=== PATIENT | female | born 1940 | race Caucasian/White ===

== ENCOUNTER 2017-04-09 12:32 | Inpatient (IN) | payer OTHER, MEDICARE ==
[~2017-04-09] VITALS: Ht 149.9 cm; Wt 65.0 kg
[2017-04-10] MEDS ORDERED: LIDO4PAD TOPICAL (11:37)
[2017-04-10] MEDS ORDERED: PRIL20TA2 PO (16:01)
[2017-04-10] MEDS ORDERED: MULT1TAB46 PO (16:01)
[2017-04-10] MEDS ORDERED: CALC500T35 PO (16:01)
[2017-04-10] MEDS ORDERED: TIZA4CAP3 PO (16:01)
[2017-04-10] MEDS ORDERED: CO Q200C PO (16:01)
[2017-04-10] MEDS ORDERED: IBUP400T20 PO (16:01)
[2017-04-10] MEDS ORDERED: FISH1000 PO (16:01)
[2017-04-10] MEDS ORDERED: GABA300C5 PO (16:01)
[2017-04-10] MEDS ORDERED: VITA100064 PO (16:01)
[2017-04-10] MEDS ORDERED: VITACAP9 PO (16:01)
[2017-04-10] MEDS ORDERED: LACTCAP8 PO (16:01)
[2017-04-10] MEDS ORDERED: [UNRECOGNIZED DRUG - OTHER] EACH EYE (16:01)
[2017-04-10] MEDS ORDERED: CALCCHW CHEW (16:01)
[2017-04-10] MEDS ORDERED: ASPI-110 PO (16:01)
[2017-04-10] MEDS ORDERED: LIPI40TA PO (16:01)
[2017-04-10] MEDS ORDERED: ENAL2.5T PO (16:06)
--- NOTE | 2017-04-16 10:32 | MH ---
cc: MEGAN WRIGHT DATE OF ADMISSION 04/16/2017 ADMISSION DIAGNOSIS Right knee osteoarthritis. HISTORY This patient is a 76-year-old female with significant right knee pain. Investigative studies shows evidence of extensive arthritis in the right knee. Despite conservative care, the patient is painful and symptomatic. She presents for surgical treatment. PAST MEDICAL HISTORY, SOCIAL HISTORY AND FAMILY HISTORY, REVIEW OF SYSTEMS See attached notes. PHYSICAL EXAMINATION This is a 76-year-old female in moderate distress with her right knee. HEENT: Normocephalic, atraumatic. Pupils equal, round, reactive to light and accommodation. Extraocular motions intact. NECK: Supple. CHEST: Clear. HEART: Regular rate and rhythm. ABDOMEN: Soft and nontender with normoactive bowel sounds. MUSCULOSKELETAL: Examination of the right knee, pain with range of motion, pain with varus-valgus stress, mild deformity is seen. NEUROLOGIC AND VASCULAR: Examination is within normal limits. IMPRESSION Osteoarthritis right knee PLAN Right total knee replacement arthroplasty. CONSENT The risks of surgery including infection, bleeding, loss of motion, continued pain need for further surgery, neurologic and vascular injury. The patient understands these issues and wishes to press on with surgery as outlined above. MD JAMIE Ramsey/ALTHEA /11:41 PM /10:23 AM
[2017-04-16] MEDS ORDERED: VANCOMYCIN 1000 MG/NS 250 ML (for <70 kg) IV SCH ×2 (11:30)
[2017-04-16] MEDS ORDERED: CHLORHEXIDINE GLUCONATE 2 % 1 PACK (2 CLOTHS) TOPICAL PRN (11:30)
[2017-04-16] MEDS ORDERED: LACTATED RINGER'S 1000 ML IV PRN (11:30)
[2017-04-16] MEDS ORDERED: ceFAZolin 2 GM PREMIX 50 ML IV SCH (11:30)
[2017-04-16] MEDS ORDERED: METOPROLOL TARTRATE 25 MG TAB PO PRN (11:30)
[2017-04-16] MEDS ORDERED: INSULIN HUMAN REGULAR 1,000 UNITS/10 ML VIAL SQ PRN (11:30)
[2017-04-16] MEDS ORDERED: POVIDONE IODINE 5% (ANTISEPSIS KIT) 4 APPLICATIONS EACH NARE PRN (11:30)
[2017-04-16] MEDS ORDERED: SODIUM CHLORID 0.9% 500 ML IV PRN (11:30)
[2017-04-16] MEDS ORDERED: POVIDONE IODINE 7.5% SCRUB 118 ML BOTTLE TOPICAL SCH (11:30)
[2017-04-16 11:43] VITALS: BP 145/64; PULSE 73; RESP 18; TEMP 98; O2SAT 99
[2017-04-16] MEDS ORDERED: ONDANSETRON HCL 4 MG/2 ML VIAL IV PUSH ONE (12:00)
[2017-04-16] MEDS ORDERED: ePHEDrine/NS 25 MG/5 ML SYR IV ONE (12:00)
[2017-04-16] MEDS ORDERED: PROPOFOL 200 MG/20 ML AMP IV ONE (12:00)
[2017-04-16] MEDS ORDERED: LACTATED RINGER'S 1000 ML INJ 1,000 ML IV ONE (12:00)
[2017-04-16] MEDS ORDERED: PHENYLEPH/NS 1000 MCG/10 ML SYR IV ONE (12:00)
[2017-04-16] MEDS ORDERED: KETAMINE HCL 500 MG/5 ML VIAL IV ONE (12:00)
[2017-04-16] MEDS ORDERED: SODIUM CHLORIDE 0.9% IV SCH ×2 (13:00→17:27)
[2017-04-16] MEDS ORDERED: EXPAREL PERI-ARTICULAR INJECTION (TOTAL VOL. 60 ML) P-ARTICULR SCH ×2 (13:00)
[2017-04-16] MEDS ORDERED: TRANEXAMIC ACID IV SCH ×2 (13:00→17:27)
[2017-04-16] MEDS ORDERED: APREPITANT 40 MG CAP ONE (13:06)
[2017-04-16] MEDS ORDERED: GENTAMICIN SULFATE 80 MG/2 ML VIAL ONE (13:10)
[2017-04-16] MEDS ORDERED: MIDAZOLAM HCL 2 MG/2 ML VIAL ONE (13:20)
--- NOTE | 2017-04-16 15:28 | PD.OP ---
cc: Jonny hCapman. Operative Report Date of Surgery: Apr 16, 2017 Preoperative Diagnosis: Osteoarthritis right knee, severe. Valgus deformity right knee Postoperative Diagnosis: Same Procedure: Right total knee replacement arthroplasty Anesthesia: Spinal Surgeon: Jonny Chapman Catering Chef(s): BERENICE Jj Operation and Findings: EBL: 50 cc INDICATION: This patient presents with long-standing arthritis of the knee. Attachment record documents conservative measures. The patient now presents for surgical treatment. NOTE: Ana Jj PA-C was present for the entire surgical procedure as my first helper. In my medical opinion her skill and care was necessary for proper management of this patient. TOURNIQUET TIME: 43 minutes COMPANY: [employer] FEMUR: Size 2, cruciate retaining, cemented TIBIA: Size 2, fixed-bearing, cemented PATELLA: 32 mm POLYETHYLENE INSERT: 11 mm PROCEDURE: This patient was brought the operating room and anesthetized in the supine position. The patient was positioned supine on the table. The tourniquet was placed about the thigh, and the leg was scrubbed with alcohol followed by Hibiclens followed by ChloraPrep and draped sterilely. A timeout was done, and antibiotics were given. After exsanguination the tourniquet was inflated to 250 mmHg. An anterior incision was made and a median parapatellar arthrotomy was performed. The patella was released laterally and subluxed allowing freehand cut of the patella which was then sized. A metal cap was placed over the exposed patellar surface for protection. A shop steward hole was placed in the distal femur allowing a 3 valgus cut removing 10 mm from the distal femur. Anterior posterior and chamfer cuts were made. The posterior stabilize osteotomy was made. The attention was directed to the tibia. Retractors were positioned. The external alignment guide was used allowing the lateral tibia to be used as referencing guide and cut utilizing an oscillating saw taking care to avoid any injury to the surrounding soft tissues. This was sized properly. Trial reduction showed that the insert fit nicely. The patient had range of motion extension 0 flexion 130. A medial release was not necessary. The bony surfaces prepared. On the back table 2 packets of methylmethacrylate were mixed. The components were cemented. Excess cement was removed. The tourniquet let down and hemostasis was controlled. The final plastic insert was inserted. Range of motion was the same as previously noted. A drain was brought through a separate stab incision. The arthrotomy was repaired with interrupted #1 Vicryl suture, subcutaneous tissue 2-0 Vicryl suture and skin with metallic rudy A sterile dressing was applied. Sponge counts, needle counts and instrument counts were all correct. The patient tolerated procedure well and was taken to recovery in satisfactory condition. FINDINGS: There was severe arthritis of the lateral compartment with a hypoplastic lateral condyle and a valgus deformity. The final alignment was very satisfactory. Final fit was excellent. No complication was appreciated Jonny Chapman MD Apr 16, 2017 15:28
[2017-04-16] MEDS ORDERED: oxyCODONE/ACETAMINOPHEN 5 MG/325 MG TAB PO PRN (15:30)
[2017-04-16] MEDS ORDERED: Post-op Orders (for Pharmacy) MISC XX ONE (15:30)
[2017-04-16] MEDS ORDERED: MORPHINE SULFATE 8 MG/ML INJ IM PRN (15:30)
[2017-04-16] MEDS ORDERED: MORPHINE SULFATE 30 MG/30 ML PCA IV SCH (15:30)
[2017-04-16] MEDS ORDERED: SODIUM CHLORIDE 0.9% FLUSH 5 ML FLUSH IVF PRN (15:30)
[2017-04-16] MEDS ORDERED: NALOXONE HCL 0.4 MG/ML AMP IV PRN (15:30)
[2017-04-16] MEDS ORDERED: OXYC1TAB63 PO (15:30)
[2017-04-16] MEDS ORDERED: XARE10TA PO (15:30)
[2017-04-16] MEDS ORDERED: TEMAZEPAM 15 MG CAP PO PRN (15:30)
[2017-04-16] MEDS ORDERED: MISCELLANEOUS NURSING INFORMATION XX PRN (15:30)
[2017-04-16] MEDS ORDERED: MISCELLANEOUS PHARMACY INFORMATION XX ONE (15:30)
[2017-04-16] MEDS ORDERED: *morphine SULFATE 8 MG/ML PERIprocedure ONLY ONE ×2 (16:33→16:49)
--- NOTE | 2017-04-16 16:43 | RADRPT ---
EXAM DATE/TIME: 04/16/2017 16:16 [facility] COMPARISON: No previous studies available for comparison. INDICATIONS : Post hardware placement MEDICAL HISTORY : Arthritis. SURGICAL HISTORY : None. ENCOUNTER: Initial ACUITY: 1 day PAIN SCORE: 0/10 LOCATION: Right Knee FINDINGS: AP and lateral views of the knee following arthroplasty reveals a prosthesis in anatomic alignment. F racture is not appreciated. Surgical drain is evident CONCLUSION: Status post total knee arthroplasty. Go Jiang MD FACR Board Certified Radiologist. This report was verified electronically.
[2017-04-16] MEDS ORDERED: DIMETHICONE/OXYBENZONE/PADMIATE LIP BALM 4.25 GM TOPICAL ONE (16:44)
[2017-04-16] MEDS: LACTATED RINGER'S 1000 ML INJ 1,000 ML IV SCH (16:50)
[2017-04-16] MEDS ORDERED: DO NOT ADM ANY ANTICOAGULANT DRUGS PRN (17:15)
[2017-04-16] MEDS: GABAPENTIN 300 MG CAP PO SCH (18:00)
[2017-04-16 19:00] VITALS: BP 142/61; PULSE 60; RESP 18; TEMP 96.8; O2SAT 100
[2017-04-16] MEDS: SODIUM CHLORIDE 0.9% FLUSH 5 ML FLUSH IVF SCH (21:00)
[2017-04-16] MEDS: ENALAPRIL MALEATE 2.5 MG TAB PO SCH (21:51)
[2017-04-16] MEDS: ATORVASTATIN 40 MG TAB PO SCH (21:51)
[2017-04-16] MEDS: MAGNESIUM HYDROXIDE SUSP 30 ML CUP PO SCH (21:52)
[2017-04-16] MEDS: SENNOSIDES 8.6 MG TAB PO SCH (21:52)
[2017-04-16] MEDS ORDERED: PCA - TOTAL MG MORPHINE DELIVERED PER SHIFT SCH (22:00)
[2017-04-17] VITALS (10 sets, daily range): BP systolic 101–125; BP diastolic 50–67; PULSE 65–95; RESP 16–18; TEMP 95.3–99.1; O2SAT 92–98
[2017-04-17] MEDS: LACTATED RINGER'S 1000 ML INJ 1,000 ML IV SCH ×2 (04:30→16:38)
[2017-04-17 06:03] LABS: HEMATOCRIT 35.9 % (35.0-46.0); REVIEW FLAG FINAL
[2017-04-17] MEDS ORDERED: WALKER WHEELS/F1 MIS (07:57)
[2017-04-17] MEDS ORDERED: COMMODE 3-IN-11 MIS (07:58)
--- NOTE | 2017-04-17 07:58 | HHI.DCPOC ---
Discharge Care Plan Diagnosis: (1) Right knee pain (2) Osteoarthritis of right knee Your Health Problems Are: Incision/Drains Swelling Goals to Promote Your Health * To prevent worsening of your condition and complications * To maintain your health at the optimal level Directions to Meet Your Goals Take your medications as prescribed Follow your dietary instruction Follow activity as directed Keep your appointments as scheduled Take your immunizations and boosters as scheduled If your symptoms worsen call your PCP, if no PCP go to Urgent Care Center or Emergency Room Smoking is Dangerous to Your Health. Avoid second hand smoke Call the 24-hour hour crisis hotline for domestic abuse at Mica Moore Apr 17, 2017 07:58
--- NOTE | 2017-04-17 08:00 | HHI.DS ---
Discharge Summary Admission Date Apr 16, 2017 at 10:51 Discharge Date: Apr 20, 2017 Admitting Diagnosis see below Diagnosis: (1) Right knee pain Diagnosis: Principal (2) Osteoarthritis of right knee Diagnosis: Principal Procedures Right total knee arthroplasty Brief History This is a 77 year old female patient with a 2 year history of right knee pain and increasing deformity. She began using ice, heat and over the counter topical anti-inflammatories. Her pain continued. She sought out medical treatment and imaging studies were performed showing advanced lateral compartment arthritis and a valgus deformity. She tried using a brace but his increased her pain. She sought out further treatment and had steroid injections in addition to viscosupplement injections. Because her function continued to decline it was eventually recommended she move forward with right total arthroplasty. She agreed and presents for the above. CBC/BMP: 04/17/17 0541 Hospital Course Surgical treatment was performed on the day of admission without complication. She recovered well in PACU and was transferred to the orthopaedic floor. Pain was controlled with IV and oral medications. DVT prophylaxis was initiated pod# 1 with xarelto. On day 2 she began struggling with mild shortness of breath and her O2 levels began dropping. A VQ scan was performed in addition to CTA and it was confirmed she had a PE of the right upper lobe. She was increased to xarelto 30mg qd. After 4 days she was found to be medically stable and discharged to residential with instruction to continue her therapy, continue a high fiber diet, and to continue her xarelto until notified otherwise. The medical service recommended followup outpatient with her PCP for management of her PE. Pt Condition on Discharge: Stable Discharge Disposition: Discharge to SNF Discharge Instructions Diet Instructions: As Tolerated, No Restrictions, High Fiber Diet Activities You Can Perform: Weight Bearing as Lonnie Activities to Avoid: Strenuous Activity Additional Activity Instruc.: TKA protocol New Medications: Commode 3-in-1 (Commode 3-in-1) 1 Mis Mis 1 EA .ROUTE DIRECTED #1 Ref 0 EA CPM-Continuous Passive Motion Machine (CPM-Continuous Passive Motion Machine) 1 Ea Device 1 EA .ROUTE DIRECTED #1 Ref 0 EA Rivaroxaban (Xarelto) 20 Mg Tab 20 MG PO DAILY TAKE ONE TABLET BY MOUTH STARTING ON 2016 UNTIL DISCONTINUED BY [facility] Blood Clot Prevention #30 Ref 0 TAB Walker with Front Wheels (Walker with Front Wheels) 1 Mis Mis 1 EA .ROUTE DIRECTED #1 Ref 0 EA Oxycodone-Acetaminophen (Oxycodone-Acetaminophen) 5-325 mg Tab 1 TAB PO Q4H PRN PAIN LESS THAN 5 ON SCALE #50 TAB Continued Medications: Atorvastatin (Lipitor) 40 Mg Tab 40 MG PO HS Cholesterol Management #30 Ref 0 TAB B Complex W/ C (Vitamin B Complex-C) 1 Cap Cap 1 TAB PO DAILY Calcium-Vitamins D & K (Calcium Soft Chews) 500-500-40 Mg-Unit-Mcg Chew 1 TAB CHEW ,,MYLES Nutritional Supplement Ref 0 TAB Cholecalciferol (Vitamin D3) 1,000 Unit Tab 1000 UNITS PO MO,,FR Nutritional Supplement #1 Ref 0 BOTTLE Coenzyme Q10 (Ubidecarenone) (Co Q-10) 200 Mg Cap 1 CAP PO DAILY Enalapril (Enalapril) 2.5 Mg Tab 2.5 MG PO HS #30 Ref 0 TAB Gabapentin (Gabapentin) 300 Mg Cap 300 MG PO TID #90 Ref 0 CAP Lactobacillus Acidophilus (Probiotic) 1 Cap Cap 1 CAP PO DAILY Nutritional Supplement #90 Ref 0 CAP Lidocaine Patch (Aspercreme Lidocaine Max Patch) 4% Patch 1 PATCH TOPICAL DIRECTED PRN PAIN SCALE 1 TO 10 Multiple Vitamin (Multi Vitamin Daily) 1 Tab Tab 1 TAB PO ,,FR [place]-3 Fatty Acids (Fish Oil) 1,000 Mg Cap 1 CAP PO ,, Omeprazole Magnesium (Prilosec) 20 Mg Tab 1 TAB PO DAILY Peg 400/Hypromellose/Glycerin (Eye Drop Tears) 15 Ml Drops 1 DROP EACH EYE DIRECTED PRN DRY EYE Tizanidine (Tizanidine) 4 Mg Cap 4 MG PO HS PRN MUSCLE SPASM Ref 0 CAP Discontinued Medications: Aspirin DR (Aspirin 81) 81 Mg Tabdr 81 MG PO DAILY Ref 0 TAB Ibuprofen (Ibuprofen) 400 Mg Tab 400 MG PO Q6H PRN PAIN SCALE 1 TO 10 Ref 0 TAB Mica Moore Apr 17, 2017 08:00
--- NOTE | 2017-04-17 08:02 | PD.ORT.PN ---
Subjective Subjective Remarks Moderate right knee pain. Aching in the posterior knee and thigh. No loss sensation. No new CP or SOB. Questions about surgery. Has no one at home so prefers rehab. Objective Vitals Vital Signs Date Time Temp Pulse Resp B/P Pulse Ox O2 Delivery O2 Flow Rate FiO2 04/17/17 07:38 97.3 73 18 125/56 96 04/17/17 04:00 97.7 79 17 101/50 97 04/17/17 01:07 95 Nasal Cannula 2.50 04/17/17 00:00 96.5 65 16 107/52 98 04/16/17 21:58 18 04/16/17 19:00 96.8 60 18 142/61 100 04/16/17 18:00 58 16 141/64 100 Nasal Cannula 2 04/16/17 17:55 16 04/16/17 17:30 97.8 56 16 141/62 100 Nasal Cannula 2 04/16/17 17:00 60 16 122/56 98 Nasal Cannula 2 04/16/17 16:45 58 16 127/58 99 Nasal Cannula 2 04/16/17 16:30 68 16 128/60 98 Nasal Cannula 2 04/16/17 16:15 68 16 131/60 100 Nasal Cannula 2 04/16/17 16:00 96.2 82 16 129/63 100 Nasal Cannula 2 04/16/17 11:43 98.0 73 18 145/64 99 I/O 04/16/17 04/16/17 04/16/17 04/17/17 04/17/17 04/17/17 07:00 15:00 23:00 07:00 15:00 23:00 Intake Total 1097 ml 1092 ml Output Total 510 ml 300 ml Balance 587 ml 792 ml Intake Oral 480 ml 480 ml IV Total 617 ml 612 ml Output Urine Total 400 ml 250 ml Drainage Total 110 ml 50 ml # Bowel Movements 0 0 Result Diagram: 04/17/17 0541 Imaging Last 24 hours Impressions Knee X-Ray 04/16/17 1524 Signed Impressions: Service Date/Time: April 16:16 - CONCLUSION: Status post total knee arthroplasty. 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 D/C right knee drain. D/C lee cath. PT - WBAT RLE. TKA protocol. CKS in bed. Hold dressing changes unless saturated. Xarelto 10mg qd. D/C planning, SNF thursday. [id number] signed. Mica Moore Apr 17, 2017 08:02
[2017-04-17] MEDS ORDERED: CPMMACHINE (08:12)
[2017-04-17] MEDS: PANTOPRAZOLE SOD 20 MG DELAYED RELEASE TAB PO SCH (08:59)
[2017-04-17] MEDS: GABAPENTIN 300 MG CAP PO SCH ×3 (08:59→16:41)
[2017-04-17] MEDS: MAGNESIUM HYDROXIDE SUSP 30 ML CUP PO SCH ×2 (08:59→22:10)
[2017-04-17] MEDS: SODIUM CHLORIDE 0.9% FLUSH 5 ML FLUSH IVF SCH ×2 (08:59→22:11)
[2017-04-17] MEDS ORDERED: NON-FORMULARY DRUG (Omeprazole Magnesium (Prilosec) 1 TAB) PO SCH (09:00)
[2017-04-17] MEDS: oxyCODONE/ACETAMINOPHEN 5 MG/325 MG TAB PO PRN ×2 (10:17→14:23)
[2017-04-17] MEDS: RIVAROXABAN 10 MG TAB PO SCH (15:31)
[2017-04-17] MEDS: SENNOSIDES 8.6 MG TAB PO SCH (22:10)
[2017-04-17] MEDS: ATORVASTATIN 40 MG TAB PO SCH (22:10)
[2017-04-17] MEDS: ENALAPRIL MALEATE 2.5 MG TAB PO SCH (22:11)
[2017-04-18] VITALS: BP 102/70; PULSE 93; RESP 16; TEMP 98.3; O2SAT 96
[2017-04-18] MEDS: LACTATED RINGER'S 1000 ML INJ 1,000 ML IV SCH ×2 (05:30→18:00)
[2017-04-18 07:29] VITALS: BP 102/52; PULSE 92; RESP 18; TEMP 98.7; O2SAT 91
[2017-04-18] MEDS: MAGNESIUM HYDROXIDE SUSP 30 ML CUP PO SCH ×2 (09:00→21:00)
[2017-04-18] MEDS: SODIUM CHLORIDE 0.9% FLUSH 5 ML FLUSH IVF SCH ×2 (09:00→21:13)
[2017-04-18] MEDS: GABAPENTIN 300 MG CAP PO SCH ×3 (09:26→18:34)
[2017-04-18] MEDS: PANTOPRAZOLE SOD 20 MG DELAYED RELEASE TAB PO SCH (09:26)
--- NOTE | 2017-04-18 09:37 | PD.ORT.PN ---
Subjective Post Op Day #: 3 Subjective Remarks The patient is OBB in chair with mild to moderate right knee pain. Patient has been running low with O2 saturation and is currently on 3 L NC with sats in the low 90s. Patient denies SOB or CP. Patient has hx of PE last May. Objective Vitals Vital Signs Date Time Temp Pulse Resp B/P Pulse Ox O2 Delivery O2 Flow Rate FiO2 04/18/17 07:29 98.7 92 18 102/52 91 04/18/17 00:00 98.3 93 16 102/70 96 04/17/17 19:48 96 Nasal Cannula 4.00 04/17/17 19:00 99.1 91 16 112/61 97 04/17/17 17:40 97 Nasal Cannula 4.00 04/17/17 17:00 95 Nasal Cannula 4.00 04/17/17 16:50 95 Nasal Cannula 4.00 04/17/17 16:00 95.3 95 18 110/67 95 04/17/17 12:35 95 Room Air 04/17/17 11:34 97.9 74 18 121/57 97 04/17/17 10:37 92 Nasal Cannula 2.00 I/O 04/17/17 04/17/17 04/17/17 04/18/17 04/18/17 04/18/17 06:59 14:59 22:59 06:59 14:59 22:59 Intake Total 1092 ml 1007 ml 480 ml 250 ml Output Total 300 ml 345 ml 360 ml Balance 792 ml 662 ml 120 ml 250 ml Intake Oral 480 ml 480 ml 480 ml 250 ml IV Total 612 ml 527 ml Output Urine Total 250 ml 300 ml 300 ml Drainage Total 50 ml 45 ml 60 ml # Voids 0 # Bowel Movements 0 0 0 0 Result Diagram: 04/17/17 0541 Imaging Last 24 hours Impressions Knee X-Ray 04/16/17 1524 Signed Impressions: Service Date/Time: April 16:16 - CONCLUSION: Status post total knee arthroplasty. 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 PT - WBAT RLE. TKA protocol. CKS in bed. Hold dressing changes unless saturated. Xarelto 10mg qd. CTA of chest to r/o PE secondary to low O2 saturation and hx of PE. D/C planning, SNF today if CTA is negative [address] Apr 18, 2017 09:37
[2017-04-18 11:49] VITALS: BP 141/60; PULSE 94; RESP 18; TEMP 96.6; O2SAT 94
[2017-04-18 11:53] LABS: ANION GAP 6 MEQ/L (5-15); AST (GOT) 25 U/L (15-37); BICARBONATE 30.7 MEQ/L (21.0-32.0); BLOOD UREA NITROGEN 17 MG/DL (7-18); CHLORIDE 100 MEQ/L (98-107); GLOMERULAR FILTRATION RATE 66 ML/MIN (>89); POTASSIUM 3.7 MEQ/L (3.5-5.1); SODIUM (NA) 137 MEQ/L (136-145)
[2017-04-18 11:57] LABS: ALKALINE PHOSPHATASE 92 U/L (45-117); ALT (GPT) 24 U/L (10-53); TOTAL BILIRUBIN ADULT 0.8 MG/DL (0.2-1.0)
[2017-04-18] MEDS: RIVAROXABAN 10 MG TAB PO SCH (14:34)
[2017-04-18] MEDS: ACETAMINOPHEN 325 MG TAB PO PRN (14:34)
[2017-04-18 15:21] VITALS: BP 131/61; PULSE 85; RESP 18; TEMP 97.6; O2SAT 97
--- NOTE | 2017-04-18 17:16 | RADRPT ---
EXAM DATE/TIME: 04/18/2017 16:56 [facility] COMPARISON: No previous studies available for comparison. INDICATIONS : Shortness of breath. MEDICAL HISTORY : None. SURGICAL HISTORY : None. ENCOUNTER: Subsequent ACUITY: 1 day PAIN SCORE: 0/10 LOCATION: Bilateral chest FINDINGS: PA and lateral views of the chest. Low lung volumes. Severe S-shaped thoracolumbar scoliosis. Bluntin g of the left costophrenic sulcus indicating a small left pleural effusion. Linear opacity at the lef t lung base posteriorly indicating atelectasis. No evidence of pneumothorax. CONCLUSION: Left pleural effusion and left lower lung atelectasis. Daryl Sy MD on April 18, 2017 at 17:13 Board Certified Radiologist. This report was verified electronically.
--- NOTE | 2017-04-18 17:30 | RADRPT ---
EXAM DATE/TIME: 04/18/2017 15:39 [facility] COMPARISON: No previous studies available for comparison. INDICATIONS : Dyspnea after knee surgery. History of pulmonary embolism. DOSE: 1.4 mCi Tc99m DTPA 8.8 mCi Tc99m MAA MEDICAL HISTORY : Hypertension. PE. SURGICAL HISTORY : Total knee replacement, right. Hysterectomy. ENCOUNTER: Initial ACUITY: 1 day PAIN SCALE: 0/10 LOCATION: chest TECHNIQUE: Following five minutes of tidal breathing of DTPA aerosol, planar images of the lungs were performed in eight projections. The patient was then injected with MAA, and eight-view perfusion scan was perf ormed. FINDINGS: There is a rounded subsegmental perfusion defect in the anterior right midlung. No corresponding vent ilation defect is seen. Perfusion is otherwise homogeneous and within normal limits. CONCLUSION: Single subsegmental mismatched perfusion defect in the anterior right midlung. Intermediate probabili ty/indeterminate for pulmonary embolus. Daryl Sy MD on April 18, 2017 at 17:27 Board Certified Radiologist. This report was verified electronically.
--- NOTE | 2017-04-18 20:04 | PD.CONS ---
HPI Service [facility] Hospitalists . Consult Requested By Rian St . Reason for Consult Abnormal VQ scan . Primary Care Physician Bre Draper MD . Diagnoses: (1) Osteoarthritis of right knee (2) Pulmonary embolism History of Present Illness Ms. Saucedo is a pleasant 77 -year-old female with a history of pulmonary embolism in May 2016 who presented to [facility] on 04/16/2017 for elective right TKA by Dr. Jonny Chapman. Postoperatively, she has been experiencing some variable oxygen saturations with variable supplemental oxygen requirements. She is not on oxygen as an outpatient and denies any history of COPD, emphysema, or asthma. She states that when she was diagnosed with pulmonary embolism in May 2016 following a fall at home, her only symptom was variable oxygen saturations. She states she was placed on Xarelto for 6 months and then it was discontinued. Xarelto 10 mg p.o. daily was started by ortho on 04/17/17 for DVT prophylaxis. Because of the patient's current variable oxygen requirements and saturation levels and given her history of PE with O2 sat variation as her only symptom, VQ scan was performed and was indeterminate for PE with intermediate probability. Hospitalist team was consulted to assist with medical management of possible pulmonary embolism. The patient denies any chest pain, dyspnea, shortness of breath, or palpitations. She denies any calf cramping or tenderness. She reports limited physical therapy due to variable oxygen saturations. Review of Systems Except as stated in HPI: all other systems reviewed are Neg Past Family Social History Allergies: Coded Allergies: Darvocet-N 100 (Verified Allergy, Severe, VERTIGO, VOMITING, 04/16/17) Lortab (Verified Allergy, Severe, nausea and vomitting, 04/16/17) Penicillin (Verified Allergy, Severe, RASH, 04/16/17) Tramadol (Verified Allergy, Severe, VERTIGO, VOMITING, 04/16/17) Cortisone (Verified Adverse Reaction, Intermediate, FLUSHING, 04/16/17) WAS A FOOT INJECTION Morphine (Verified Adverse Reaction, Mild, 04/17/17) NAUSEA AND MILD ITCHING Past Medical History Pulmonary embolism May 2016 following fall at home Gastroesophageal reflux disease Hypertension Chronic kidney disease, stage II Degenerative disc disease C2 fracture - no surgical repair, medical management only Osteoarthritis Diabetes mellitus, type II, controlled with diet and exercise-diagnosed 1-2 years ago Situational depression Anxiety Hyperlipidemia Denies history of DVT, CVA, seizures, thyroid disease, respiratory problems like COPD or asthma, cardiac problems like coronary artery disease or congestive heart failure, or liver disease such as hepatitis. . Past Surgical History Right knee arthroplasty 04/16/2017 Reported Medications Reported Meds & Active Scripts Active Xarelto (Rivaroxaban) 10 Mg Tab 10 Mg PO Q24H Oxycodone-Acetaminophen 5-325 mg Tab 1 Tab PO Q4H PRN Reported Enalapril (Enalapril Maleate) 2.5 Mg Tab 2.5 Mg PO HS Eye Drop Tears (Peg 400/Hypromellose/Glycerin) 15 Ml Drops 1 Drop EACH EYE DIRECTED PRN Tizanidine (Tizanidine HCl) 4 Mg Cap 4 Mg PO HS PRN Co Q-10 (Coenzyme Q10 (Ubidecarenone)) 200 Mg Cap 1 Cap PO DAILY Lipitor (Atorvastatin Calcium) 40 Mg Tab 40 Mg PO HS Aspirin 81 (Aspirin) 81 Mg Tabdr 81 Mg PO DAILY Fish Oil ([place]-3 Fatty Acids) 1,000 Mg Cap 1 Cap PO ,, Calcium Soft Chews (Calcium-Vitamins D & K) 500-500-40 Mg-Unit-Mcg Chew 1 Tab CHEW ,,MYLES Vitamin D3 (Cholecalciferol) 1,000 Unit Tab 1,000 Units PO MO,WE,FR Multi Vitamin Daily (Multiple Vitamin) 1 Tab Tab 1 Tab PO MO,WE,FR Probiotic (Lactobacillus Acidophilus) 1 Cap Cap 1 Cap PO DAILY Vitamin B Complex-C (B Complex W/ C) 1 Cap Cap 1 Tab PO DAILY Ibuprofen 400 Mg Tab 400 Mg PO Q6H PRN Gabapentin 300 Mg Cap 300 Mg PO TID Prilosec (Omeprazole Magnesium) 20 Mg Tab 1 Tab PO DAILY Aspercreme Lidocaine Max Patch (Lidocaine) 4% Patch 1 Patch TOPICAL DIRECTED PRN . Active Ordered Medications Current Medications Lactated Ringer's 1,000 ml @ 30 mls/hr Q24H PRN IV SEE LABEL COMMENTS Last administered on 04/16/17t 11:35; Start 04/16/17 at 11:30; Stop 04/19/17 at 11:29 Sodium Chloride (NS 500 ml Inj) 500 ml @ 30 mls/hr [id number] PRN IV SEE LABEL COMMENTS; Start 04/16/17 at 11:30; Stop 04/19/17 at 11:29 Metoprolol Tartrate (Lopressor) 25 mg SPIKE MAKER PRN PO SEE LABEL COMMENTS; Start 04/16/17 at 11:30; Stop 04/19/17 at 11:29 Povidone Iodine (Betadine 5% Antisepsis Kit) 1 applic SPIKE MAKER PRN EACH NARE SEE LABEL COMMENTS Last administered on 04/16/17 11:41; Start 04/16/17 at 11:30 ; Stop 04/19/17 at 11:29 Chlorhexidine Gluconate (Chlorhexidine 2% Cloth) 3 pack SPIKE MAKER PRN TOPICAL SEE LABEL COMMENTS Last administered on 04/16/17 11:41; Start 04/16/17 at 11:30 ; Stop 04/19/17 at 11:29 Insulin Human Regular (NovoLIN R INJ) See Protocol Table ... SPIKE MAKER PRN SQ SEE PROTOCOL TABLE; Start 04/16/17 at 11:30; Stop 04/19/17 at 11:29 Povidone Iodine 1 applic 1 applic ONCE TOPICAL Last administered on 04/16/17 11:41; Start 04/16/17 at 11:30; Stop 04/19/17 at 11:29 Vancomycin HCl 1000 mg/Sodium Chloride 250 ml @ 250 mls/hr SPIKE MAKER IV Last administered on 04/16/17 12:12; Start 04/16/17 at 11:30; Stop 04/19/17 at 11:29 Cefazolin Sodium/ Dextrose (Ancef 2 Gm Premix) 50 ml @ 100 mls/hr SPIKE MAKER IV Last administered on 04/16/17 14:22; Start 04/16/17 at 11:30; Stop 04/19/17 at 11:29 Atorvastatin Calcium (Lipitor) 40 mg HS PO Last administered on 04/18/17 21:12 ; Start 04/16/17 at 21:00 Enalapril Maleate (Vasotec) 2.5 mg HS PO Last administered on 04/18/17 21:12; Start 04/16/17 at 21:00 Gabapentin (Neurontin) 300 mg TID PO Last administered on 04/18/17 18:34; Start 04/16/17 at 18:00 Tizanidine HCl (Zanaflex) 4 mg HS PRN PO MUSCLE SPASM; Start 04/16/17 at 15:30 Non-Formulary Medication 1 tab 1 tab DAILY PO ; Start 04/17/17 at 09:00; Status UNV Lactated Ringer's (Lr 1000 ml Inj) 1,000 ml @ 80 mls/hr [id number] IV Last administered on 04/17/17 16:38; Start 04/16/17 at 16:00 IV Flush (NS Flush) 2 ml UNSCH PRN IVF FLUSH AFTER USING IV ACCESS; Start 04/16 at 15:30 IV Flush 2 ml 2 ml BID IVF Last administered on 04/18/17 21:13; Start at 21:00 Morphine Sulfate (Morphine Inj) 5 mg Q3H PRN IM Pain >7 when off AUTOMATIC SEAMER; Start 06/23 at 15:30 Oxycodone/ Acetaminophen (Percocet 5-325 Mg) 1 tab Q4H PRN PO PAIN LESS THAN 5 ON SCALE Last administered on 04/17/17 14:23; Start 04/16/17 at 15:30 Oxycodone/ Acetaminophen 2 tab 2 tab Q4H PRN PO PAIN SCALE 5 TO 10; Start 04/16 at 15:30 Temazepam (Restoril) 15 mg HS PRN PO SLEEP; Start 04/16/17 at 15:30 Magnesium Hydroxide (Milk Of Magnesia Liq) 30 ml BID PO Last administered on 08:59; Start 04/16/17 at 21:00 Sennosides (Senokot) 17.2 mg HS PO Last administered on 04/17/17 22:10; Start 04/16/17 at 21:00 Naloxone HCl (Narcan Inj) 0.4 mg UNSCH PRN IV RESPIRATORY RATE LESS THAN 10; Start 04/16/17 at 15:30 Pantoprazole Sodium (Protonix) 20 mg DAILY PO Last administered on 04/18/17 09 :26; Start 04/17/17 at 09:00 Acetaminophen (Tylenol) 650 mg UNSCH X1 PRN PO PAIN SCALE 1 TO 10 Last administered on 04/18/17 14:34; Start 04/18/17 at 14:00; Stop 04/19/17 at 13:59 Rivaroxaban (Xarelto) 20 mg DAILY@17 PO ; Start 04/19/17 at 17:00 . Family History Father and brother had mesothelioma Mother with breast CA . Social History Tobacco: Stopped smoking in 1999; smoked 3 - 4 cigarettes per day x 20 years Alcohol: rare social use Illicit Drugs: denies . Physical Exam Vital Signs Vital Signs Date Time Temp Pulse Resp B/P Pulse Ox O2 Delivery O2 Flow Rate FiO2 04/18/17 15:21 97.6 85 18 131/61 97 04/18/17 11:49 96.6 94 18 141/60 94 04/18/17 09:24 Nasal Cannula 3.00 04/18/17 07:29 98.7 92 18 102/52 91 04/18/17 00:00 98.3 93 16 102/70 96 Physical Exam GENERAL: This is a pleasant female patient who appears younger than her stated age, in no apparent distress. SKIN: No rashes. Cool and dry. Right knee covered with bandage. HEAD: Atraumatic. Normocephalic. EYES: No scleral icterus. No injection or drainage. ENT: Nose without bleeding, purulent drainage. NECK: Trachea midline. No JVD. CARDIOVASCULAR: Regular rate and rhythm without murmurs, gallops, or rubs. RESPIRATORY: Clear to auscultation. Breath sounds equal bilaterally. No wheezes , rales, or rhonchi. GASTROINTESTINAL: Abdomen soft, non-tender, nondistended. No guarding. MUSCULOSKELETAL: Extremities without clubbing, cyanosis. No calf tenderness. Right upper arm swelling s/p infiltration of IV while CT angiogram was attempted - contrast infiltrated tissue - dressing was removed: good pulses, 2+ nonpitting edema, no significant tenderness noted, without paresthesia - sensation intact. NEUROLOGICAL: Awake and alert. Motor and sensory grossly within normal limits. Normal speech. . Laboratory Laboratory Tests Test 04/18/17 11:14 Sodium Level 137 Potassium Level 3.7 Chloride Level 100 Carbon Dioxide Level 30.7 Anion Gap 6 Blood Urea Nitrogen 17 Creatinine 0.84 Estimat Glomerular Filtration 66 Rate Random Glucose 164 Calcium Level 8.7 Total Bilirubin 0.8 Aspartate Amino Transf 25 (AST/SGOT) Alanine Aminotransferase 24 (ALT/SGPT) Alkaline Phosphatase 92 Total Protein 6.3 Albumin 3.0 Result Diagram: 04/17/17 0541 04/18/17 1114 Imaging Last Impressions Chest X-Ray 04/18/17 1633 Signed Impressions: Service Date/Time: Tuesday, April 18, 2017 16:56 - CONCLUSION: Left pleural effusion and left lower lung atelectasis. Daryl Sy MD Lung Scan-VQ Nuclear Medicine 04/18/17 0000 Signed Impressions: Service Date/Time: Tuesday, April 18, 2017 15:39 - CONCLUSION: Single subsegmental mismatched perfusion defect in the anterior right midlung. Intermediate probability/indeterminate for pulmonary embolus. Daryl Sy MD CT Angiography 04/18/17 0000 Signed Impressions: Service Date/Time: Tuesday, April 18, 2017 22:25 - CONCLUSION: Pulmonary embolus identified in single segmental branch right upper lobe. Finding discussed with patient's nurse. Daryl Sy MD Knee X-Ray 04/16/17 1524 Signed Impressions: Service Date/Time: April 16:16 - CONCLUSION: Status post total knee arthroplasty. Go Jiang MD . Assessment and Plan Problem List: (1) Pulmonary embolism ICD Code: I26.99 Status: Acute (2) Osteoarthritis of right knee ICD Code: M17.11 Status: Acute (3) Type 2 diabetes mellitus ICD Code: E11.9 Status: Chronic Assessment and Plan 77 y/o female with history of PE who is s/p Right TKA with acute post-op PE: Pulmonary Embolism - right upper lobe - VQ scan showed intermediate probability/indeterminate for pulmonary embolus - CT pulmonary angiogram ordered and showed pulmonary embolism and single segmental branch of the right upper lobe - Xarelto 10 mg tonight - Increase Xarelto to 20 mg p.o. daily - Continue supplemental oxygen titrated to maintain oxygen saturation greater than 92% - Monitor vital signs and oxygen saturations S/P contrast infiltration right upper arm - monitor right upper arm for resolution of edema - monitor for skin changes, circulatory changes, or paresthesias of RUE CKD, stage II - stable - eGFR 66, BUN 17, creatinine 0.84 - will recheck bmp in a.m. and follow results to evaluate renal function and any impairment secondary to contrast Type 2 diabetes mellitus - treated with diet and exercise as an outpatient - BG 164 - random yesterday - follow glucose results on BMP in a.m. - consider adding accu checks pending results - diet changed to 2000 Kcal ADA diet Right Knee Arthroplasty - Management per orthopedics - Patient has pain control on current pain management regimen . Discussed Condition With Dr. Vences, Patient, and RN Problem Qualifiers (1) Pulmonary embolism: (2) Type 2 diabetes mellitus: Mayra Kong Apr 18, 2017 20:04
[2017-04-18 20:33] VITALS: BP 129/67; PULSE 60; RESP 17; TEMP 96.7; O2SAT 94
[2017-04-18] MEDS: SENNOSIDES 8.6 MG TAB PO SCH (21:00)
[2017-04-18] MEDS: ATORVASTATIN 40 MG TAB PO SCH (21:12)
[2017-04-18] MEDS: ENALAPRIL MALEATE 2.5 MG TAB PO SCH (21:12)
[2017-04-18] MEDS ORDERED: IOHEXOL 350 MG/ML 10 ML VIAL (for RAD DIAG) IV ONE (22:25)
--- NOTE | 2017-04-18 22:57 | RADRPT ---
EXAM DATE/TIME: 04/18/2017 22:25 [place] COMPARISON: No previous studies available for comparison. INDICATIONS : Indeterminate VQ scan, history of pulmonary embolism. IV CONTRAST: 73 cc Omnipaque 350 (iohexol) IV RADIATION DOSE: 9.34 CTDIvol (mGy) MEDICAL HISTORY : Hypertension. Pulmonary embolism. SURGICAL HISTORY : Hysterectomy. ENCOUNTER: Initial ACUITY: 1 day PAIN SCALE: 0/10 LOCATION: chest TECHNIQUE: Volumetric scanning of the chest was performed using a pulmonary embolism protocol MIP images were re constructed. Using automated exposure control and adjustment of the mA and/or kV according to patien t size, radiation dose was kept as low as reasonably achievable to obtain optimal diagnostic quality images. DICOM format image data is available electronically for review and comparison. Follow-up recommendations for detected pulmonary nodules are based at a minimum on nodule size and pa tient risk factors according to Fleischner Society Guidelines. FINDINGS: PULMONARY ARTERIES: There is a filling defect within a branch to the anterior right upper lobe indicating ulnar embolus. No other pulmonary emboli identified. LUNGS: Bilateral lower lobe atelectasis. PLEURAE: There is no pleural thickening or pleural effusion. MEDIASTINUM: Diffuse aortic calcification. No enlarged lymph nodes. MUSCULOSKELETAL: Within normal limits for patient age. MISCELLANEOUS: The visualized upper abdominal organs demonstrate no acute abnormality. CONCLUSION: Pulmonary embolus identified in single segmental branch right upper lobe. Finding discussed with [facility] ent's nurse. Daryl Sy MD on April 18, 2017 at 22:50 Board Certified Radiologist. This report was verified electronically.
[2017-04-18] MEDS ORDERED: RIVAROXABAN 10 MG TAB PO ONE (23:15)
[2017-04-18 23:19] VITALS: BP 133/63; PULSE 102; RESP 17; TEMP 97.9; O2SAT 92
[2017-04-19] VITALS (7 sets, daily range): BP systolic 107–142; BP diastolic 54–63; PULSE 81–104; RESP 16–20; TEMP 96.8–97.8; O2SAT 92–97
[2017-04-19 06:29] LABS: AUTOMATED NEUTROPHIL # 7.1 TH/MM3 (1.8-7.7); BASOPHIL % 0.5 % (0.0-2.0); EOSINOPHIL # 0.1 TH/MM3 (0-0.4); EOSINOPHIL % 1.2 % (0.0-4.0); HEMATOCRIT 32.2 % (35.0-46.0); HEMO FLAGS DIFF FINAL; LYMPH % 12.2 % (9.0-44.0); LYMPHOCYTE # 1.1 TH/MM3 (1.0-4.8); MEAN CELL VOLUME 87.1 FL (80.0-100.0); MEAN CORPUSCULAR HEMOGLOBIN 28.8 PG (27.0-34.0); MEAN CORPUSCULAR HGB CONC 33.1 % (32.0-36.0); NEUT % 76.1 % (16.0-70.0); PLATELET COUNT 127 TH/MM3 (150-450); RED CELL DISTRIBUTION WIDTH 15.3 % (11.6-17.2); WHITE BLOOD COUNT 9.4 TH/MM3 (4.0-11.0)
[2017-04-19] MEDS: LACTATED RINGER'S 1000 ML INJ 1,000 ML IV SCH (06:30)
[2017-04-19 06:54] LABS: BICARBONATE 30.3 MEQ/L (21.0-32.0); POTASSIUM 3.7 MEQ/L (3.5-5.1)
[2017-04-19] MEDS: MAGNESIUM HYDROXIDE SUSP 30 ML CUP PO SCH ×2 (09:00→21:00)
[2017-04-19] MEDS: SODIUM CHLORIDE 0.9% FLUSH 5 ML FLUSH IVF SCH ×2 (09:00→21:49)
--- NOTE | 2017-04-19 09:08 | PD.ORT.PN ---
Subjective Post Op Day #: 4 Subjective Remarks The patient is OBB in chair with mild to moderate right knee pain. Patient is on 4 L NC for low O2 saturation and recent dx of PE. Patient denies CP and SOB today. Objective Vitals Vital Signs Date Time Temp Pulse Resp B/P Pulse Ox O2 Delivery O2 Flow Rate FiO2 04/19/17 06:40 92 Nasal Cannula 4.00 04/19/17 04:36 96.8 100 17 116/56 92 04/18/17 23:19 97.9 102 17 133/63 92 04/18/17 20:33 96.7 60 17 129/67 94 04/18/17 15:21 97.6 85 18 131/61 97 04/18/17 11:49 96.6 94 18 141/60 94 04/18/17 09:24 Nasal Cannula 3.00 I/O 04/18/17 04/18/17 04/18/17 04/19/17 04/19/17 04/19/17 07:00 15:00 23:00 07:00 15:00 23:00 Intake Total 250 ml 937 ml 480 ml 360 ml Balance 250 ml 937 ml 480 ml 360 ml Intake Oral 250 ml 650 ml 480 ml 360 ml IV Total 287 ml # Voids 0 3 3 1 # Bowel Movements 0 3 3 1 Result Diagram: 04/19/17 0600 04/19/17 0600 Imaging Last 24 hours Impressions Knee X-Ray 04/16/17 1524 Signed Impressions: Service Date/Time: April 16:16 - CONCLUSION: Status post total knee arthroplasty. Go Jiang MD Procedures Right total knee arthroplasty Objective Remarks Last 48 hours Impressions Chest X-Ray 04/18/17 1633 Signed Impressions: Service Date/Time: Tuesday, April 18, 2017 16:56 - CONCLUSION: Left pleural effusion and left lower lung atelectasis. Daryl Sy MD Lung Scan- Nuclear Medicine 04/18/17 0000 Signed Impressions: Service Date/Time: Tuesday, April 18, 2017 15:39 - CONCLUSION: Single subsegmental mismatched perfusion defect in the anterior right midlung. Intermediate probability/indeterminate for pulmonary embolus. Daryl Sy MD CT Angiography 04/18/17 0000 Signed Impressions: Service Date/Time: Tuesday, April 18, 2017 22:25 - CONCLUSION: Pulmonary embolus identified in single segmental branch right upper lobe. Finding discussed with patient's nurse. Daryl Sy MD OOB in chair NAD RLE Dressing intact, drain removed from lateral knee, mild warmth, no erythema +motor at, +sens, +nvi neg homans, thigh supple Assessment & Plan Ortho Post Op Day #: 4 Problem List: (1) Right knee pain (2) Osteoarthritis of right knee Assessment and Plan pod #4 s/p R TKA Pulmonary Embolism D/C [employer] - change to po pain meds. PT - WBAT RLE. TKA protocol. CKS in bed. Hold dressing changes unless saturated. Xarelto 20mg qd for DVT prophylaxis and management of PE PE confirmed with VQ scan and CTA of chest. Medical consulted and is managing PE. D/C planning, SNF once medically stable. [id number] Apr 19, 2017 09:08
[2017-04-19] MEDS: GABAPENTIN 300 MG CAP PO SCH ×3 (09:37→18:36)
[2017-04-19] MEDS: PANTOPRAZOLE SOD 20 MG DELAYED RELEASE TAB PO SCH (09:37)
[2017-04-19] MEDS: ACETAMINOPHEN 325 MG TAB PO PRN (09:41)
--- NOTE | 2017-04-19 10:16 | HHI.PR ---
Subjective Remarks Ms. Saucedo is a pleasant 77 -year-old female with a history of pulmonary embolism in May 2016 who presented to [facility] on 04/16/2017 for elective right TKA by Dr. Jonny Chapman. Postoperatively, she has been experiencing some variable oxygen saturations with variable supplemental oxygen requirements. She is not on oxygen as an outpatient and denies any history of COPD, emphysema, or asthma. She states that when she was diagnosed with pulmonary embolism in May 2016 following a fall at home, her only symptom was variable oxygen saturations. She states she was placed on Xarelto for 6 months and then it was discontinued. Xarelto 10 mg p.o. daily was started by ortho on 04/17/17 for DVT prophylaxis. Because of the patient's current variable oxygen requirements and saturation levels and given her history of PE with O2 sat variation as her only symptom, VQ scan was performed and was indeterminate for PE with intermediate probability. Hospitalist team was consulted to assist with medical management of possible pulmonary embolism. The patient denies any chest pain, dyspnea, shortness of breath, or palpitations. She denies any calf cramping or tenderness. She reports limited physical therapy due to variable oxygen saturations. 04/19: Stable in her bedroom, seen in the presence of her Nurse Miss Howard and with her Friend authorized by the patient . Carmine Olivas, explained that the dose of Xarelto that she was taking as outpatient in the past and followed by Doctor Jean Butler computer security specialist, due to a history of PE. secondary to fracture. at this time no nausea, vomit or diarrhea, will keep her in house until tomorrow am and walk test performed, will go to Rehab facility. Objective Vital Signs Date Time Temp Pulse Resp B/P Pulse Ox O2 Delivery O2 Flow Rate FiO2 04/19/17 07:55 97.8 98 16 129/62 92 04/19/17 06:40 92 Nasal Cannula 4.00 04/19/17 04:36 96.8 100 17 116/56 92 04/18/17 23:19 97.9 102 17 133/63 92 04/18/17 20:33 96.7 60 17 129/67 94 04/18/17 15:21 97.6 85 18 131/61 97 04/18/17 11:49 96.6 94 18 141/60 94 I/O 04/18/17 04/18/17 04/18/17 04/19/17 04/19/17 04/19/17 07:00 15:00 23:00 07:00 15:00 23:00 Intake Total 250 ml 937 ml 480 ml 360 ml Balance 250 ml 937 ml 480 ml 360 ml Intake Oral 250 ml 650 ml 480 ml 360 ml IV Total 287 ml # Voids 0 3 3 1 # Bowel Movements 0 3 3 1 Result Diagram: 04/19/17 0600 04/19/17 0600 Imaging Last Impressions Chest X-Ray 04/18/17 1633 Signed Impressions: Service Date/Time: Tuesday, April 18, 2017 16:56 - CONCLUSION: Left pleural effusion and left lower lung atelectasis. Daryl Sy MD Lung Scan-V Nuclear Medicine 04/18/17 0000 Signed Impressions: Service Date/Time: Tuesday, April 18, 2017 15:39 - CONCLUSION: Single subsegmental mismatched perfusion defect in the anterior right midlung. Intermediate probability/indeterminate for pulmonary embolus. Daryl Sy MD CT Angiography 04/18/17 0000 Signed Impressions: Service Date/Time: Tuesday, April 18, 2017 22:25 - CONCLUSION: Pulmonary embolus identified in single segmental branch right upper lobe. Finding discussed with patient's nurse. Daryl Sy MD Knee X-Ray 04/16/17 1524 Signed Impressions: Service Date/Time: April 16:16 - CONCLUSION: Status post total knee arthroplasty. Go Jiang MD Procedures Status post Right knee arthroplasty. Other Results Laboratory Tests Test 04/16/17 04/18/17 04/19/17 11:30 11:14 06:00 Erythrocyte Sedimentation Rate 7 mm/hr Blood Type O POSITIVE Antibody Screen NEGATIVE Crossmatch Leukocyte-Reduced Red Blood Cells Blood Bank Comment Total Bilirubin 0.8 MG/DL Aspartate Amino Transf 25 U/L (AST/SGOT) Alanine Aminotransferase 24 U/L (ALT/SGPT) Alkaline Phosphatase 92 U/L Total Protein 6.3 GM/DL Albumin 3.0 GM/DL White Blood Count 9.4 TH/MM3 Red Blood Count 3.70 MIL/MM3 Hemoglobin 10.7 GM/DL Hematocrit 32.2 % Mean Corpuscular Volume 87.1 FL Mean Corpuscular Hemoglobin 28.8 PG Mean Corpuscular Hemoglobin 33.1 % Concent Red Cell Distribution Width 15.3 % Platelet Count 127 TH/MM3 Mean Platelet Volume 11.0 FL Neutrophils (%) (Auto) 76.1 % Lymphocytes (%) (Auto) 12.2 % Monocytes (%) (Auto) 10.0 % Eosinophils (%) (Auto) 1.2 % Basophils (%) (Auto) 0.5 % Neutrophils # (Auto) 7.1 TH/MM3 Lymphocytes # (Auto) 1.1 TH/MM3 Monocytes # (Auto) 0.9 TH/MM3 Eosinophils # (Auto) 0.1 TH/MM3 Basophils # (Auto) 0.0 TH/MM3 CBC Comment DIFF FINAL Differential Comment Sodium Level 140 MEQ/L Potassium Level 3.7 MEQ/L Chloride Level 103 MEQ/L Carbon Dioxide Level 30.3 MEQ/L Anion Gap 7 MEQ/L Blood Urea Nitrogen 15 MG/DL Creatinine 0.69 MG/DL Estimat Glomerular Filtration 82 ML/MIN Rate Random Glucose 98 MG/DL Calcium Level 8.4 MG/DL Objective Remarks GENERAL: This is a pleasant female patient who appears younger than her stated age, in no apparent distress. SKIN: No rashes. Cool and dry. dressed. HEAD: Atraumatic. Normocephalic. EYES: No scleral icterus. No injection or drainage. ENT: Nose without bleeding, purulent drainage. NECK: Trachea midline. No JVD. CARDIOVASCULAR: Regular rate and rhythm without murmurs, gallops, or rubs. RESPIRATORY: Clear to auscultation. Breath sounds equal bilaterally. No wheezes , rales, or rhonchi. GASTROINTESTINAL: Abdomen soft, non-tender, nondistended. No guarding. MUSCULOSKELETAL: Extremities without clubbing, cyanosis. right knee dressed. NEUROLOGICAL: Awake and alert. Motor and sensory grossly within normal limits. Normal speech. Medications and IVs Current Medications Medications (Trade) Dose Ordered Sig/Mandy Route Start Time Stop Time Status Last Admin Lactated Ringer's 1,000 ml @ 30 mls/hr Q24H PRN IV 04/16/17 11:30 04/19/17 11:29 04/16/17 11:35 (NS 500 ml Inj) 500 ml @ 30 mls/hr [id number] PRN IV 04/16/17 11:30 04/19/17 11:29 (Betadine 7.5% Scrub) 1 applic ONCE TOPICAL 04/16/17 11:30 04/19/17 11:29 04/16/17 11:41 (Lipitor) 40 mg HS PO 04/16/17 21:00 04/18/17 21:12 (Vasotec) 2.5 mg HS PO 04/16/17 21:00 04/18/17 21:12 (Neurontin) 300 mg TID PO 04/16/17 18:00 04/19/17 09:37 Tizanidine HCl 4 mg 4 mg HS PRN PO 04/16/17 15:30 (Lr 1000 ml Inj) 1,000 ml @ 80 mls/hr [id number] IV 04/16/17 16:00 04/17/17 16:38 (NS Flush) 2 ml UNSCH PRN IVF 04/16/17 15:30 (NS Flush) 2 ml BID IVF 04/16/17 21:00 04/19/17 09:00 Miscellaneous Information UNSCH PRN XX 04/16/17 15:30 (Morphine Inj) 5 mg Q3H PRN IM 04/16/17 15:30 (Percocet 5-325 Mg) 1 tab Q4H PRN PO 04/16/17 15:30 04/17/17 14:23 (Percocet 5-325 Mg) 2 tab Q4H PRN PO 04/16/17 15:30 (Restoril) 15 mg HS PRN PO 04/16/17 15:30 (Milk Of Magnesia Liq) 30 ml BID PO 04/16/17 21:00 04/17/17 08:59 (Senokot) 17.2 mg HS PO 04/16/17 21:00 04/17/17 22:10 (Narcan Inj) 0.4 mg UNSCH PRN IV 04/16/17 15:30 (Protonix) 20 mg DAILY PO 04/17/17 09:00 04/19/17 09:37 (Xarelto) 20 mg DAILY@17 PO 04/19/17 17:00 A/P Problem List: (1) Right knee pain ICD Code: M25.561 (2) Osteoarthritis of right knee ICD Code: M17.11 (3) Pulmonary embolism ICD Code: I26.99 (4) Type 2 diabetes mellitus ICD Code: E11.9 Assessment and Plan 77 y/o female with history of PE who is s/p Right TKA with acute post-op PE: Pulmonary Embolism - right upper lobe - VQ scan showed intermediate probability/indeterminate for pulmonary embolus - CT pulmonary angiogram ordered and showed pulmonary embolism and single segmental branch of the right upper lobe - Increase Xarelto to 15 mg BID for 21 days then will continue 20 mg daily thereafter for six months. - Continue supplemental oxygen titrated to maintain oxygen saturation greater than 92% - Monitor vital signs and oxygen saturations, Walk test in am and discharge to Rehab if continue stable. the patient has history of an old Pulmonary Emboli followed by her Primary computer security specialist Doctor Jean Butler as outpatient. S/P contrast infiltration right upper arm - monitor right upper arm for resolution of edema - monitor for skin changes, circulatory changes, or paresthesias of RUE CKD, stage II - stable - eGFR 66, BUN 17, creatinine 0.84 - will recheck bmp in a.m. and follow results to evaluate renal function and any impairment secondary to contrast Type 2 diabetes mellitus - treated with diet and exercise as an outpatient - BG 164 - random yesterday - follow glucose results on BMP in a.m. - consider adding accu checks pending results - diet changed to 2000 Kcal ADA diet Right Knee Arthroplasty - Management per orthopedics okay to discharge to SNF today but she continue with Hypoxemia in am was 87% at room air. - Patient has pain control on current pain management regimen . Discussed Condition With Patient, nurse Lee and with friend authorized by patient to be in the room Mr. Carmine Olivas all questions answered to the best of my abilities. Discharge Planning Expected in am tomorrow. Problem Qualifiers (1) Pulmonary embolism: (2) Type 2 diabetes mellitus: Kurtis Malone MD Apr 19, 2017 10:16
[2017-04-19] MEDS ORDERED: POTASSIUM CHLORIDE 20 MEQ CONTROLLED RELEASE TAB PO ONE (11:00)
[2017-04-19] MEDS: RIVAROXABAN 15 MG TAB PO SCH ×2 (12:11→21:46)
[2017-04-19] MEDS ORDERED: RIVAROXABAN 20 MG TAB PO SCH (17:00)
[2017-04-19] MEDS: SENNOSIDES 8.6 MG TAB PO SCH (21:00)
[2017-04-19] MEDS: ATORVASTATIN 40 MG TAB PO SCH (21:45)
[2017-04-19] MEDS: ENALAPRIL MALEATE 2.5 MG TAB PO SCH (21:46)
[2017-04-20] VITALS: BP 114/58; PULSE 109; RESP 20; TEMP 98; O2SAT 93
[2017-04-20 04:00] VITALS: BP 137/65; PULSE 87; RESP 18; TEMP 95.6; O2SAT 94
[2017-04-20 07:51] VITALS: BP 126/61; PULSE 94; RESP 16; TEMP 97.8; O2SAT 95
--- NOTE | 2017-04-20 08:47 | HHI.PR ---
Subjective Remarks Ms. Saucedo is a pleasant 77 -year-old female with a history of pulmonary embolism in May 2016 who presented to [facility] on 04/16/2017 for elective right TKA by Dr. Jonny Chapman. Postoperatively, she has been experiencing some variable oxygen saturations with variable supplemental oxygen requirements. She is not on oxygen as an outpatient and denies any history of COPD, emphysema, or asthma. She states that when she was diagnosed with pulmonary embolism in May 2016 following a fall at home, her only symptom was variable oxygen saturations. She states she was placed on Xarelto for 6 months and then it was discontinued. Xarelto 10 mg p.o. daily was started by ortho on 04/17/17 for DVT prophylaxis. Because of the patient's current variable oxygen requirements and saturation levels and given her history of PE with O2 sat variation as her only symptom, VQ scan was performed and was indeterminate for PE with intermediate probability. Hospitalist team was consulted to assist with medical management of possible pulmonary embolism. The patient denies any chest pain, dyspnea, shortness of breath, or palpitations. She denies any calf cramping or tenderness. She reports limited physical therapy due to variable oxygen saturations. 04/19: Stable in her bedroom, seen in the presence of her Nurse Miss Howard and with her Friend authorized by the patient Mr. Carmine Olivas, explained that the dose of Xarelto that she was taking as outpatient in the past and followed by Doctor Jean Butler psych sales specialist, due to a history of PE. secondary to fracture. 04/20: Stable in her bedroom no nausea, vomit or diarrhea, okay to discharge from Orthopedic surgery standpoint, okay to discharge from Medicine standpoint discussed with patient and business relations manager do not need walk test will need to go to SNF and if needed oxygen in Rehab will be given, also recommended to follow with her Primary psych sales specialist Doctor Jean Butler and PCP and Orthopedic Surgery. Objective Vital Signs Date Time Temp Pulse Resp B/P Pulse Ox O2 Delivery O2 Flow Rate FiO2 04/20/17 07:51 97.8 94 16 126/61 95 04/20/17 04:00 95.6 87 18 137/65 94 04/20/17 00:00 98.0 109 20 114/58 93 04/19/17 20:00 96.9 104 20 117/57 95 04/19/17 15:57 97.6 84 16 142/63 96 04/19/17 11:07 97.5 81 16 107/54 97 04/19/17 10:10 95 Nasal Cannula 2.00 04/19/17 08:55 Nasal Cannula 2.00 I/O 04/19/17 04/19/17 04/19/17 04/20/17 04/20/17 04/20/17 06:59 14:59 22:59 06:59 14:59 22:59 Intake Total 360 ml 720 ml Balance 360 ml 720 ml Intake Oral 360 ml 720 ml # Voids 1 2 1 1 # Bowel Movements 1 1 Result Diagram: 04/19/17 0600 04/19/17 0600 Imaging Last Impressions Chest X-Ray 04/18/17 1633 Signed Impressions: Service Date/Time: Tuesday, April 18, 2017 16:56 - CONCLUSION: Left pleural effusion and left lower lung atelectasis. Daryl Sy MD Lung Scan- Nuclear Medicine 04/18/17 0000 Signed Impressions: Service Date/Time: Tuesday, April 18, 2017 15:39 - CONCLUSION: Single subsegmental mismatched perfusion defect in the anterior right midlung. Intermediate probability/indeterminate for pulmonary embolus. Daryl Sy MD CT Angiography 04/18/17 0000 Signed Impressions: Service Date/Time: Tuesday, April 18, 2017 22:25 - CONCLUSION: Pulmonary embolus identified in single segmental branch right upper lobe. Finding discussed with patient's nurse. Daryl Sy MD Knee X-Ray 04/16/17 1524 Signed Impressions: Service Date/Time: April 16:16 - CONCLUSION: Status post total knee arthroplasty. Go Jiang MD Procedures Status post Right knee arthroplasty. Other Results Laboratory Tests Test 04/16/17 04/18/17 04/19/17 11:30 11:14 06:00 Erythrocyte Sedimentation Rate 7 mm/hr Blood Type O POSITIVE Antibody Screen NEGATIVE Crossmatch Leukocyte-Reduced Red Blood Cells Blood Bank Comment Total Bilirubin 0.8 MG/DL Aspartate Amino Transf 25 U/L (AST/SGOT) Alanine Aminotransferase 24 U/L (ALT/SGPT) Alkaline Phosphatase 92 U/L Total Protein 6.3 GM/DL Albumin 3.0 GM/DL White Blood Count 9.4 TH/MM3 Red Blood Count 3.70 MIL/MM3 Hemoglobin 10.7 GM/DL Hematocrit 32.2 % Mean Corpuscular Volume 87.1 FL Mean Corpuscular Hemoglobin 28.8 PG Mean Corpuscular Hemoglobin 33.1 % Concent Red Cell Distribution Width 15.3 % Platelet Count 127 TH/MM3 Mean Platelet Volume 11.0 FL Neutrophils (%) (Auto) 76.1 % Lymphocytes (%) (Auto) 12.2 % Monocytes (%) (Auto) 10.0 % Eosinophils (%) (Auto) 1.2 % Basophils (%) (Auto) 0.5 % Neutrophils # (Auto) 7.1 TH/MM3 Lymphocytes # (Auto) 1.1 TH/MM3 Monocytes # (Auto) 0.9 TH/MM3 Eosinophils # (Auto) 0.1 TH/MM3 Basophils # (Auto) 0.0 TH/MM3 CBC Comment DIFF FINAL Differential Comment Sodium Level 140 MEQ/L Potassium Level 3.7 MEQ/L Chloride Level 103 MEQ/L Carbon Dioxide Level 30.3 MEQ/L Anion Gap 7 MEQ/L Blood Urea Nitrogen 15 MG/DL Creatinine 0.69 MG/DL Estimat Glomerular Filtration 82 ML/MIN Rate Random Glucose 98 MG/DL Calcium Level 8.4 MG/DL Objective Remarks GENERAL: This is a pleasant female patient who appears younger than her stated age, in no apparent distress. SKIN: No rashes. Cool and dry. dressed. HEAD: Atraumatic. Normocephalic. EYES: No scleral icterus. No injection or drainage. ENT: Nose without bleeding, purulent drainage. NECK: Trachea midline. No JVD. CARDIOVASCULAR: Regular rate and rhythm without murmurs, gallops, or rubs. RESPIRATORY: Clear to auscultation. Breath sounds equal bilaterally. No wheezes , rales, or rhonchi. GASTROINTESTINAL: Abdomen soft, non-tender, nondistended. No guarding. MUSCULOSKELETAL: Extremities without clubbing, cyanosis. right knee dressed. NEUROLOGICAL: Awake and alert. Motor and sensory grossly within normal limits. Normal speech. Medications and IVs Current Medications Medications (Trade) Dose Ordered Sig/Mandy Route Start Time Stop Time Status Last Admin (Lipitor) 40 mg HS PO 04/16/17 21:00 04/19/17 21:45 (Vasotec) 2.5 mg HS PO 04/16/17 21:00 04/19/17 21:46 (Neurontin) 300 mg TID PO 04/16/17 18:00 04/19/17 18:36 Tizanidine HCl 4 mg 4 mg HS PRN PO 04/16/17 15:30 (Lr 1000 ml Inj) 1,000 ml @ 80 mls/hr [id number] IV 04/16/17 16:00 04/17/17 16:38 (NS Flush) 2 ml UNSCH PRN IVF 04/16/17 15:30 (NS Flush) 2 ml BID IVF 04/16/17 21:00 04/19/17 21:49 Miscellaneous Information UNSCH PRN XX 04/16/17 15:30 (Morphine Inj) 5 mg Q3H PRN IM 04/16/17 15:30 (Percocet 5-325 Mg) 1 tab Q4H PRN PO 04/16/17 15:30 04/17/17 14:23 (Percocet 5-325 Mg) 2 tab Q4H PRN PO 04/16/17 15:30 (Restoril) 15 mg HS PRN PO 04/16/17 15:30 (Milk Of Magnesia Liq) 30 ml BID PO 04/16/17 21:00 04/17/17 08:59 (Senokot) 17.2 mg HS PO 04/16/17 21:00 04/17/17 22:10 (Narcan Inj) 0.4 mg UNSCH PRN IV 04/16/17 15:30 (Protonix) 20 mg DAILY PO 04/17/17 09:00 04/19/17 09:37 (Xarelto) 15 mg BID PO 04/19/17 12:00 04/19/17 21:46 A/P Problem List: (1) Right knee pain ICD Code: M25.561 (2) Osteoarthritis of right knee ICD Code: M17.11 (3) Pulmonary embolism ICD Code: I26.99 (4) Type 2 diabetes mellitus ICD Code: E11.9 Assessment and Plan 77 y/o female with history of PE who is s/p Right TKA with acute post-op PE: Pulmonary Embolism - right upper lobe - VQ scan showed intermediate probability/indeterminate for pulmonary embolus - CT pulmonary angiogram ordered and showed pulmonary embolism and single segmental branch of the right upper lobe - Increase Xarelto to 15 mg BID for 21 days then will continue 20 mg daily thereafter for six months. - Continue supplemental oxygen titrated to maintain oxygen saturation greater than 92% - Monitor vital signs and oxygen saturations, Walk test in am and discharge to Rehab if continue stable. the patient has history of an old Pulmonary Emboli followed by her Primary psych sales specialist Doctor Jean Butler as outpatient. S/P contrast infiltration right upper arm Improved. - monitor right upper arm for resolution of edema - monitor for skin changes, circulatory changes, or paresthesias of RUE CKD, stage II - stable - eGFR 66, BUN 17, creatinine 0.84 - will recheck bmp in a.m. and follow results to evaluate renal function and any impairment secondary to contrast Type 2 diabetes mellitus - treated with diet and exercise as an outpatient - BG 164 - random yesterday - follow glucose results on BMP in a.m. - consider adding accu checks pending results - diet changed to 2000 Kcal ADA diet Right Knee Arthroplasty - Management per orthopedics okay to discharge to SNF today. . Discussed Condition With Patient and Charge Nurse, all questions answered to the best of my abilities. Discharge Planning Discharge to SNF today. Problem Qualifiers (1) Pulmonary embolism: (2) Type 2 diabetes mellitus: Kurtis Malone MD Apr 20, 2017 08:47 Krutis Malone MD Apr 20, 2017 08:47
[2017-04-20] MEDS: MAGNESIUM HYDROXIDE SUSP 30 ML CUP PO SCH (09:00)
[2017-04-20] MEDS: SODIUM CHLORIDE 0.9% FLUSH 5 ML FLUSH IVF SCH (09:00)
[2017-04-20] MEDS: GABAPENTIN 300 MG CAP PO SCH (09:45)
[2017-04-20] MEDS: PANTOPRAZOLE SOD 20 MG DELAYED RELEASE TAB PO SCH (09:45)
[2017-04-20] MEDS: RIVAROXABAN 15 MG TAB PO SCH (09:48)
[2017-04-20] MEDS ORDERED: XARE20TA PO (10:36)
[2017-04-20] MEDS ORDERED: XARE15TA PO (10:36)
[2017-04-20 10:49] VITALS: O2SAT 95
[2017-04-20] MEDS ORDERED: ACETAMINOPHEN 500 MG CPLT PO PRN (11:00)
[2017-04-20 12:05] VITALS: BP 119/57; PULSE 95; RESP 16; TEMP 97.5; O2SAT 95
== END 2017-04-20 14:28 | DRG 470 ==
LOC: HSDI 04-16 10:51 → N06B 04-16 18:11
PROVIDERS: ADMIT Orthopaedic Surgery Orthopaedic Surgery of the Spine; ATTEND Orthopaedic Surgery Orthopaedic Surgery of the Spine
PROC: 0SRC0J9 Replacement of Right Knee Joint with Synthetic Substitute, Cemented, Open Approach (ICD-10-PCS; principal; 2017-04-16 13:23)
DX: M17.11 Unilateral primary osteoarthritis, right knee (principal); I26.99 Other pulmonary embolism without acute cor pulmonale; E11.22 Type 2 diabetes mellitus with diabetic chronic kidney disease; M21.061 Valgus deformity, not elsewhere classified, right knee; E78.5 Hyperlipidemia, unspecified; K21.9 Gastro-esophageal reflux disease without esophagitis; I12.9 Hypertensive chronic kidney disease with stage 1 through stage 4 chronic kidney disease, or unspecified chronic kidney disease; N18.2 Chronic kidney disease, stage 2 (mild); R60.9 Edema, unspecified; Z87.891 Personal history of nicotine dependence; Z86.711 Personal history of pulmonary embolism
CPT/HCPCS: 36415; 71020; 71275; 73560; 76937; 78582; 80048; 80053; 85014; 85018; 85025; 85652; 86850; 86900; 86901; 86920; 94150; A9540; A9567; C1776; C9290; J0690; J1580; J2250; J2270; J2370; J2405; J3370; J7050; J7120; J8501; L1830; Q9967

== ENCOUNTER → 2017-04-10 | Outpatient (CLI) | payer MEDICARE, OTHER ==
[~2017-04-10] MED LIST: ASPI-110 PO; ASPI81 PO; ASPI81TA81; CALC500T35 PO; CALCCHW CHEW; CO Q200C PO; COMMODE 3-IN-11 MIS; CPMMACHINE; CYCL-36 PO; ENAL2.5T PO; ENOX60P SQ; FISH1000 PO; GABA300C5 PO; GLUC500C56 PO; IBUP400T20 PO; LACTCAP8 PO; LIDO4PAD TOPICAL; LIPI40TA PO; LORT5TAB PO; MULT1TAB46 PO; OMEP20CA5 PO; OXYC1TAB63 PO; PRIL20TA2 PO; TIZA4CAP3 PO; TOPR25TA2 PO; VITA100064 PO; VITACAP9 PO; WALKER WHEELS/F1 MIS; XARE10TA PO; XARE15TA PO; XARE20TA PO; [UNRECOGNIZED DRUG - OTHER] EACH EYE
== END ==
LOC: CPRE 11:14
PROVIDERS: ATTEND Orthopaedic Surgery Orthopaedic Surgery of the Spine
DX: Z01.810 Encounter for preprocedural cardiovascular examination (principal); Z01.812 Encounter for preprocedural laboratory examination; M17.11 Unilateral primary osteoarthritis, right knee